=== PATIENT | female | born 1945 ===

== ENCOUNTER 2020-09-27 11:12 | Emergency (ER) | payer OTHER ==
[~2020-09-27] VITALS: Ht 147.3 cm; Wt 45.4 kg
[2020-09-27] MEDS ORDERED: CRESTOR10 MG PO (12:13)
[2020-09-27] MEDS ORDERED: COZAAR50 MG PO (12:14)
== END 2020-09-27 18:23 | disposition home or self-care (01) ==
LOC: ER 11:12
DX: E87.1 Hypo-osmolality and hyponatremia (principal); E86.0 Dehydration; E87.8 Other disorders of electrolyte and fluid balance, not elsewhere classified; R41.0 Disorientation, unspecified; N39.0 Urinary tract infection, site not specified; R53.1 Weakness; Z03.818 Encounter for observation for suspected exposure to other biological agents ruled out